=== PATIENT | male | born 1985 | race Caucasian/White ===

== ENCOUNTER 2016-08-15 11:22 | Emergency (ER) | payer OTHER ==
--- NOTE | 2016-08-15 12:21 | REP ---
Left forearm series: Two views. History: Trauma. Findings: Two views of the left forearm demonstrate normal bones, joints, and soft tissues. No fracture or subluxation is seen. Impression: Negative left forearm series. Signed by Kostas Correa MD 08/15/2016 12:33 P
== END 2016-08-15 14:15 | disposition left against medical advice (07) ==
LOC: M ED 11:22
DX: S69.92XA Unspecified injury of left wrist, hand and finger(s), initial encounter (principal); W19.XXXA Unspecified fall, initial encounter; Y92.89 Other specified places as the place of occurrence of the external cause; Y93.89 Activity, other specified; Y99.8 Other external cause status; F19.10 Other psychoactive substance abuse, uncomplicated; F17.210 Nicotine dependence, cigarettes, uncomplicated; Z79.899 Other long term (current) drug therapy; Z53.21 Procedure and treatment not carried out due to patient leaving prior to being seen by health care provider

== ENCOUNTER → 2016-09-22 | Outpatient (CLI) | payer OTHER | LOC: M OUTALCOH 08:21 | PROVIDERS: ATTEND Psychiatry & Neurology Psychiatry | DX: F11.20 Opioid dependence, uncomplicated (principal) ==

== ENCOUNTER → 2016-10-13 | Outpatient (RCR) | payer OTHER | LOC: M OUTALCOH 10-06 11:26 | PROVIDERS: ATTEND Psychiatry & Neurology Psychiatry | DX: F11.20 Opioid dependence, uncomplicated (principal); F17.200 Nicotine dependence, unspecified, uncomplicated ==

== ENCOUNTER 2016-11-10 15:00 | Outpatient (RCR) | payer OTHER | END 2016-11-12 | LOC: M OUTALCOH 15:00 | PROVIDERS: ATTEND Psychiatry & Neurology Psychiatry | DX: F11.20 Opioid dependence, uncomplicated (principal); F17.200 Nicotine dependence, unspecified, uncomplicated ==

== ENCOUNTER 2016-11-19 22:11 | Emergency (ER) | payer OTHER ==
[~2016-11-19] VITALS: Ht 180.3 cm; Wt 108.9 kg
[2016-11-19] MEDS ORDERED: SUBO12MI SL (22:17)
[2016-11-19] MEDS ORDERED: NORCO, ANEXSIA 5/325MG TABLET (HYDROcodone/ACETAMINOPHEN) PO ONE (23:00)
--- NOTE | 2016-11-19 23:40 | REPUSA ---
CT of the head Clinical history: Fall. Comparison: 03/06/2016. Technique: Multiple axial CT images were obtained through the head without administration of contrast . Findings: The ventricles and sulci are symmetric bilaterally. There is no evidence of acute hemorrhag e or infarct. There is no midline shift, mass effect, or extra-axial fluid collection. The osseous st ructures are unremarkable. There is moderate fluid in mucosal thickening in the left ethmoid sinuses. The other visualized paranasal sinuses and mastoid air cells are clear. Impression: 1. No acute intracranial hemorrhage or infarct. 2. Left ethmoid sinusitis.
[2016-11-19] MEDS ORDERED: ACETAMINOPHEN TAB 650MG DOSE (2X325MG) PO ONE (23:45)
[2016-11-20 00:36] LABS: MEAN CORPUSCULAR HEMOGLOBIN 29.1 pg (27.0-33.0); MEAN CORPUSCULAR HGB CONC 32.9 g/dl (32.0-36.5); MEAN CORPUSCULAR VOLUME 88.4 fl (80.0-96.0); RED CELL DISTRIBUTION WIDTH 13.4 % (11.5-14.5); WHITE BLOOD COUNT 10.9 K/mm3 (4.0-10.0)
[2016-11-20] MEDS ORDERED: NAPR500T2 PO (00:36)
[2016-11-20 00:46] VITALS: BP 116/57
[2016-11-20 00:57] LABS: ANION GAP 5 MEQ/L (8-16); BLOOD UREA NITROGEN 14 MG/DL (7-18); CALCIUM LEVEL 8.7 MG/DL (8.5-10.1); CARBON DIOXIDE LEVEL 30 MEQ/L (21-32); CHLORIDE LEVEL 106 MEQ/L (98-107); CREATININE FOR GFR 0.83 MG/DL (0.70-1.30); GLOMERULAR FILTRATION RATE > 60.0 (>60); GLUCOSE, FASTING 87 MG/DL (70-105); POTASSIUM SERUM 4.3 MEQ/L (3.5-5.1); SODIUM LEVEL 141 MEQ/L (136-145)
--- NOTE | 2016-11-20 03:09 | REP ---
Clinical: Trauma. Technique: AP, lateral, bilateral oblique and sunrise views left knee . Findings: The osseous structures and joint spaces are intact and normal. There is no evidence for acute fracture or dislocation. No joint effusion is appreciated. Surrounding soft tissues are unremarkable. No subcutaneous emphysema or radiodense foreign body. Impression: Normal examination. No acute fracture or dislocation. Signed by Brian Hogan MD 11/20/2016 03:00 A
--- NOTE | 2016-11-20 03:10 | REP ---
Clinical: Trauma with thoracic pain. Technique: AP, lateral, and swimmers views. Findings: Alignment and kyphosis is maintained. Vertebral bodies intact. No acute fracture / compression injury or subluxation. No degenerative changes. Paravertebral soft tissues are normal. Impression: Normal thoracic spine series. Signed by Brian Hogan MD 11/20/2016 03:02 A
--- NOTE | 2016-11-20 03:11 | REP ---
Clinical: Trauma. Fall. Technique: Neutral and frog lateral views of the left hip. Findings: No acute fracture or dislocation. Skeletal structures, joint spaces, and surrounding soft tissues are normal. No subcutaneous emphysema or radiodense foreign body. Impression: Normal left hip radiographs. Signed by Brian Hogan MD 11/20/2016 03:03 A
--- NOTE | 2016-11-20 03:13 | REP ---
Clinical: Trauma. Fall. Technique: AP, lateral, bilateral oblique and coned-down views of the lumbosacral spine. Findings: Alignment is maintained. No acute fracture / compression injury or subluxation. Mild to moderate multilevel degenerative changes include endplate sclerosis with minimal disc space narrowing and early anterior osteophyte formation. Impression: Mild multilevel degenerative changes. No acute fracture / compression injury or subluxation. Signed by Brian Hogan MD 11/20/2016 03:05 A
--- NOTE | 2016-11-20 03:15 | REP ---
Clinical: Trauma. Fall. Technique: AP, lateral, flexion/extension, bilateral oblique, and open-mouth views. Findings: Alignment and lordosis is maintained. There is no evidence for acute fracture / compression injury or subluxation. No significant degenerative changes are appreciated. Oblique views demonstrate patent neural foramen. Open mouth view demonstrates normal C1-C2 articulation and odontoid process. Impression: Normal cervical spine series. Signed by Brian Hogan MD 11/20/2016 03:07 A
== END 2016-11-20 00:50 | disposition home or self-care (01) ==
LOC: M ED 23:33
DX: S80.02XA Contusion of left knee, initial encounter (principal); S20.229A Contusion of unspecified back wall of thorax, initial encounter; W01.198A Fall on same level from slipping, tripping and stumbling with subsequent striking against other object, initial encounter; Y92.009 Unspecified place in unspecified non-institutional (private) residence as the place of occurrence of the external cause; Y93.01 Activity, walking, marching and hiking; Y99.8 Other external cause status; Z87.891 Personal history of nicotine dependence

== ENCOUNTER 2016-12-06 10:30 | Outpatient (RCR) | payer MEDICAID ==
[~2016-12-06 10:30] MED LIST: NAPR500T2 PO; SUBO12MI SL
== END 2016-12-13 ==
LOC: M OUTALCOH 10:30
PROVIDERS: ATTEND Psychiatry & Neurology Psychiatry
DX: F11.20 Opioid dependence, uncomplicated (principal); F17.200 Nicotine dependence, unspecified, uncomplicated

== ENCOUNTER → 2016-12-25 | Outpatient (REF) | payer MEDICAID, OTHER ==
[2016-12-25 12:05] LABS: CALCIUM OXALATE CRYSTALS MODERATE
== END ==
LOC: M LABDRAW1 09:54
PROVIDERS: ATTEND Family Medicine
DX: N50.89 Other specified disorders of the male genital organs (principal); Z11.3 Encounter for screening for infections with a predominantly sexual mode of transmission

== ENCOUNTER 2017-01-10 10:00 | Outpatient (RCR) | payer MEDICAID ==
[~2017-01-10 10:00] MED LIST changes: -NAPR500T2 PO; +NAPR500T3 PO
== END 2017-01-12 ==
LOC: M OUTALCOH 10:00
PROVIDERS: ATTEND Psychiatry & Neurology Psychiatry
DX: F11.20 Opioid dependence, uncomplicated (principal); F17.200 Nicotine dependence, unspecified, uncomplicated

== ENCOUNTER 2017-02-09 08:30 | Outpatient (RCR) | payer MEDICAID | END 2017-02-12 | LOC: M OUTALCOH 08:30 | PROVIDERS: ATTEND Psychiatry & Neurology Psychiatry | DX: F11.20 Opioid dependence, uncomplicated (principal); F17.200 Nicotine dependence, unspecified, uncomplicated ==

== ENCOUNTER 2017-02-22 13:38 | Outpatient (RCR) | payer MEDICAID | END 2017-03-15 | LOC: M OUTALCOH 13:38 | PROVIDERS: ATTEND Psychiatry & Neurology Psychiatry | DX: F11.20 Opioid dependence, uncomplicated (principal); F17.200 Nicotine dependence, unspecified, uncomplicated ==

== ENCOUNTER 2017-08-07 17:42 | Emergency (ER) | payer OTHER, MEDICAID ==
[2017-08-07] MEDS: KETOROLAC 60 MG/2 ML VIAL (J1885) IM (19:17)
== END 2017-08-07 20:12 | disposition home or self-care (01) ==
LOC: M ED 17:42
DX: S40.011A Contusion of right shoulder, initial encounter (principal); W22.01XA Walked into wall, initial encounter; F17.210 Nicotine dependence, cigarettes, uncomplicated; Y92.89 Other specified places as the place of occurrence of the external cause; Z88.5 Allergy status to narcotic agent; Z79.899 Other long term (current) drug therapy
CPT/HCPCS: J1885

== ENCOUNTER 2017-11-01 14:56 | Outpatient (RCR) | payer MEDICAID | END 2017-11-12 | LOC: M OUTALCOH 11-07 14:00 | DX: F11.10 Opioid abuse, uncomplicated (principal); F17.200 Nicotine dependence, unspecified, uncomplicated ==

== ENCOUNTER 2017-11-19 13:28 | Outpatient (RCR) | payer MEDICAID | END 2017-12-13 | LOC: M OUTALCOH 12-05 09:00 | DX: F11.20 Opioid dependence, uncomplicated (principal); F17.200 Nicotine dependence, unspecified, uncomplicated ==

== ENCOUNTER 2017-12-20 15:41 | Outpatient (RCR) | payer MEDICAID | END 2018-01-12 | LOC: M OUTALCOH 15:41 | DX: F11.20 Opioid dependence, uncomplicated (principal); F17.200 Nicotine dependence, unspecified, uncomplicated ==

== ENCOUNTER → 2017-12-21 | Outpatient (REF) | payer MEDICAID ==
[2017-12-21 11:04] LABS: HEMATOCRIT 43.9 % (42.0-52.0); HEMOGLOBIN 14.9 g/dl (13.5-17.5); MEAN CORPUSCULAR HEMOGLOBIN 28.8 pg (27.0-33.0); MEAN CORPUSCULAR HGB CONC 33.9 g/dl (32.0-36.5); MEAN CORPUSCULAR VOLUME 84.7 fl (80.0-96.0); PLATELET COUNT, AUTOMATED 188 10^3/uL (150-450); RED BLOOD COUNT 5.18 10^6/uL (4.30-6.10); RED CELL DISTRIBUTION WIDTH 13.5 % (11.5-14.5); WHITE BLOOD COUNT 10.2 10^3/uL (4.0-10.0)
[2017-12-21 11:17] LABS: ALBUMIN 3.8 GM/DL (3.2-5.2); ALBUMIN/GLOBULIN RATIO 1.27 (1.00-1.93); ALKALINE PHOSPHATASE 45 U/L (45-117); ALT/SGPT 122 U/L (12-78); ANION GAP 3 MEQ/L (8-16); AST/SGOT 62 U/L (7-37); BILIRUBIN,TOTAL 0.4 MG/DL (0.2-1.0); BLOOD UREA NITROGEN 13 MG/DL (7-18); CALCIUM LEVEL 8.5 MG/DL (8.5-10.1); CARBON DIOXIDE LEVEL 31 MEQ/L (21-32); CHLORIDE LEVEL 105 MEQ/L (98-107); CREATININE FOR GFR 0.96 MG/DL (0.70-1.30); GLOMERULAR FILTRATION RATE > 60.0 (>60); GLUCOSE, FASTING 109 MG/DL (70-100); POTASSIUM SERUM 4.2 MEQ/L (3.5-5.1); SODIUM LEVEL 139 MEQ/L (136-145); TOTAL PROTEIN 6.8 GM/DL (6.4-8.2)
[2017-12-21 11:39] LABS: ESTIMATED AVERAGE GLUCOSE 108 MG/DL (60-110); HEMOGLOBIN A1c 5.4 %
== END ==
LOC: M LABDRAW1 08:37
DX: E66.9 Obesity, unspecified (principal); Z83.3 Family history of diabetes mellitus

== ENCOUNTER 2018-01-15 13:33 | Outpatient (RCR) | payer MEDICAID | END 2018-02-12 | LOC: M OUTALCOH 01-18 12:48 | DX: F11.20 Opioid dependence, uncomplicated (principal); F17.200 Nicotine dependence, unspecified, uncomplicated ==

== ENCOUNTER 2018-03-21 15:26 | Outpatient (RCR) | payer MEDICAID | END 2018-04-14 | LOC: M OUTALCOH 03-25 16:00 | DX: F11.20 Opioid dependence, uncomplicated (principal); F17.200 Nicotine dependence, unspecified, uncomplicated ==

== ENCOUNTER 2018-04-18 13:00 | Outpatient (RCR) | payer MEDICAID | END 2018-05-15 | LOC: M OUTALCOH 04-22 16:00 | DX: F11.20 Opioid dependence, uncomplicated (principal); F17.200 Nicotine dependence, unspecified, uncomplicated ==

== ENCOUNTER 2018-05-20 14:29 | Outpatient (RCR) | payer MEDICAID | END 2018-06-14 | LOC: M OUTALCOH 05-23 14:00 | DX: F11.20 Opioid dependence, uncomplicated (principal); F17.200 Nicotine dependence, unspecified, uncomplicated ==

== ENCOUNTER 2018-07-11 13:56 | Outpatient (RCR) | payer MEDICAID ==
[~2018-07-11 13:56] MED LIST changes: +KETO10TAB PO; +NAPR-885 PO; -NAPR500T3 PO
== END 2018-07-15 ==
LOC: M OUTALCOH 13:56
PROVIDERS: ATTEND Psychiatry & Neurology Psychiatry
DX: F41.9 Anxiety disorder, unspecified (principal); F11.188 Opioid abuse with other opioid-induced disorder; F32.9 Major depressive disorder, single episode, unspecified

== ENCOUNTER 2018-07-19 15:41 | Outpatient (RCR) | payer MEDICAID | END 2018-08-15 | LOC: M OUTALCOH 15:41 | PROVIDERS: ATTEND Psychiatry & Neurology Psychiatry | DX: F11.10 Opioid abuse, uncomplicated (principal); F11.20 Opioid dependence, uncomplicated; F17.200 Nicotine dependence, unspecified, uncomplicated ==

== ENCOUNTER 2018-09-09 21:38 | Emergency (ER) | payer MEDICAID, OTHER ==
[~2018-09-09] VITALS: Ht 180.3 cm; Wt 127.3 kg
[2018-09-09] MEDS ORDERED: NS 1,000 ML IV ONE (22:00)
[2018-09-09 22:24] LABS: HEMATOCRIT 47.1 % (42.0-52.0); HEMOGLOBIN 15.9 g/dl (13.5-17.5); MEAN CORPUSCULAR HEMOGLOBIN 28.7 pg (27.0-33.0); MEAN CORPUSCULAR HGB CONC 33.8 g/dl (32.0-36.5); PLATELET COUNT, AUTOMATED 221 10^3/uL (150-450); RED BLOOD COUNT 5.54 10^6/uL (4.30-6.10); WHITE BLOOD COUNT 10.1 10^3/uL (4.0-10.0)
--- NOTE | 2018-09-09 22:40 | REPVR ---
EXAM: CT Head Without Contrast EXAM DATE/TIME: 09/09/2018 10:17 PM CLINICAL HISTORY: 33 years old, male; Pain; Headache; Additional info: Right headache, no trauma TECHNIQUE: Axial computed tomography images of the head/brain without contrast. All CT scans at this facility use at least one of these dose optimization techniques: automated exposure control; mA and/or kV adjustment per patient size (includes targeted exams where dose is matched to clinical indication); or iterative reconstruction. COMPARISON: CT Head without contrast 11/19/2016 11:19 PM FINDINGS: Brain: There is no evidence of intracranial bleed. Ventricles: Normal ventricles. Bones/joints: There is no evidence of fracture. Sinuses: Clear paranasal sinuses. Mastoid air cells: Clear mastoid air cells. Soft tissues: Unremarkable. IMPRESSION: Normal appearing CT scan of the brain. Electronically signed by: Kishor St On 09/09/2018 22:39:59 PM
[2018-09-09 22:42] LABS: BLOOD UREA NITROGEN 11 MG/DL (7-18); CALCIUM LEVEL 8.8 MG/DL (8.5-10.1); CARBON DIOXIDE LEVEL 30 MEQ/L (21-32); CHLORIDE LEVEL 101 MEQ/L (98-107); CREATININE FOR GFR 1.09 MG/DL (0.70-1.30); GLOMERULAR FILTRATION RATE > 60.0 (>60); GLUCOSE, FASTING 92 MG/DL (70-100); POTASSIUM SERUM 4.7 MEQ/L (3.5-5.1); SODIUM LEVEL 138 MEQ/L (136-145)
[2018-09-09 22:45] LABS: ERYTHROCYTE SEDIMENTATION RATE 2 mm/hr (0-15)
[2018-09-09] MEDS ORDERED: KETOROLAC 30 MG/ML VIAL (J1885) IV ONE (22:45)
[2018-09-09] MEDS ORDERED: IBUP-1114 PO (23:03)
[2018-09-09] MEDS ORDERED: REGL5TAB2 PO (23:28)
[2018-09-09 23:36] VITALS: BP 128/59
== END 2018-09-09 23:37 | disposition home or self-care (01) ==
LOC: M ED 21:38
DX: R51 Headache (principal); F17.200 Nicotine dependence, unspecified, uncomplicated; Z79.899 Other long term (current) drug therapy
CPT/HCPCS: 70450; 80048; 85027; 85652; 96374; 99284; J1885

== ENCOUNTER 2018-11-17 12:34 | Emergency (ER) | payer OTHER ==
[~2018-11-17] VITALS: Ht 180.3 cm; Wt 135.7 kg
[~2018-11-17 12:34] MED LIST changes: +IBUP-1114 PO; +REGL5TAB2 PO
[2018-11-17] MEDS ORDERED: CLOB05OI TOP (14:56)
[2018-11-17] MEDS ORDERED: MUPI30CR TOP (14:56)
--- NOTE | 2018-11-17 15:00 | REP ---
LEFT FOOT, FOUR VIEWS: There is no evidence of an acute fracture, dislocation or intrinsic bone disease. There is a tiny inferior calcaneal spur. IMPRESSION: No fracture or dislocation. Electronically Signed by Kyle Reveles MD 11/17/2018 03:02 P
[2018-11-17 15:04] VITALS: BP 133/63
== END 2018-11-17 15:05 | disposition home or self-care (01) ==
LOC: M ED 12:34
DX: L03.116 Cellulitis of left lower limb (principal); Z79.891 Long term (current) use of opiate analgesic; Z88.5 Allergy status to narcotic agent; F17.210 Nicotine dependence, cigarettes, uncomplicated

== ENCOUNTER → 2019-01-07 | Outpatient (REF) | payer OTHER, MEDICAID ==
[~2019-01-07] MED LIST changes: +CLOB05OI TOP; +MUPI30CR TOP
[2019-01-07 13:41] LABS: BASO # 0.1 10^3/uL (0.0-0.2); BASO % 0.6 % (0.0-1.0); EOS # 0.2 10^3/uL (0.0-0.50); EOS % 1.5 % (0.0-3.0); HEMATOCRIT 51.3 % (42.0-52.0); HEMOGLOBIN 16.8 g/dl (13.5-17.5); LYMPH # 3.6 10^3/uL (1.5-4.5); LYMPH % 25.2 % (24.0-44.0); MEAN CORPUSCULAR HEMOGLOBIN 28.9 pg (27.0-33.0); MEAN CORPUSCULAR HGB CONC 32.7 g/dl (32.0-36.5); MEAN CORPUSCULAR VOLUME 88.1 fl (80.0-96.0); MONO % 6.7 % (0.0-5.0); NEUTROPHILS # 9.5 10^3/uL (1.8-7.7); NEUTROPHILS % 65.6 % (36.0-66.0); PLATELET COUNT, AUTOMATED 205 10^3/uL (150-450); RED BLOOD COUNT 5.82 10^6/uL (4.30-6.10); WHITE BLOOD COUNT 14.4 10^3/uL (4.0-10.0)
[2019-01-07 14:02] LABS: APPEARANCE, URINE HAZY (CLEAR); BACTERIA, URINE AUTO NEGATIVE (NEGATIVE); BILIRUBIN, URINE AUTO NEGATIVE (NEGATIVE); BLOOD, URINE BLOOD NEGATIVE (NEGATIVE); COLOR, URINE YELLOW (YELLOW); GLUCOSE, URINE (UA) AUTO NEGATIVE (NEGATIVE); KETONE, URINE AUTO TRACE mg/dL (NEGATIVE); LEUKOCYTE ESTERASE, URINE AUTO NEGATIVE (NEGATIVE); MUCUS, URINE LARGE (NEGATIVE); NITRITE, URINE AUTO NEGATIVE (NEGATIVE); PROTEIN, URINE AUTO NEGATIVE (NEGATIVE); RBC, URINE AUTO 1 /HPF (0-3); SPECIFIC GRAVITY URINE AUTO 1.031 (1.002-1.035); SQUAMOUS EPITHELIAL CELL UR AU 0 /HPF (0-6); WBC, URINE AUTO 1 /HPF (0-3)
[2019-01-07 14:08] LABS: ALBUMIN 3.8 GM/DL (3.2-5.2); ALT/SGPT 84 U/L (12-78); BILIRUBIN,TOTAL 0.2 MG/DL (0.2-1.0); BLOOD UREA NITROGEN 13 MG/DL (7-18); CALCIUM LEVEL 9.1 MG/DL (8.5-10.1); CARBON DIOXIDE LEVEL 30 MEQ/L (21-32); CHLORIDE LEVEL 105 MEQ/L (98-107); CHOLESTEROL LEVEL 149 MG/DL (<200); CHOLESTEROL RISK RATIO 3.239 (<5); CREATININE FOR GFR 1.14 MG/DL (0.70-1.30); FREE T4 1.15 NG/DL (0.76-1.46); GLOMERULAR FILTRATION RATE > 60.0 (>60); GLUCOSE, FASTING 89 MG/DL (70-100); HDL CHOLESTEROL 46 MG/DL (>40); LDL CHOLESTEROL 83 MG/DL (<100); NON-HDL-C 103 MG/DL; POTASSIUM SERUM 4.7 MEQ/L (3.5-5.1); SODIUM LEVEL 140 MEQ/L (136-145); TOTAL 25(OH) VITAMIN D 17.9 NG/ML (30.0-100.0); TOTAL PROTEIN 7.2 GM/DL (6.4-8.2); TRIGLYCERIDES LEVEL 99 MG/DL (<150)
[2019-01-07 14:40] LABS: HEMOGLOBIN A1c 5.7 %
[2019-01-09 00:06] LABS: Lyme Disease IgG/IgM Antibodie <0.91 ISR (0.00-0.90); Lyme Disease IgM Ab Quantitati <0.80 index (0.00-0.79)
== END ==
LOC: M LAB REF 12:57
PROVIDERS: ATTEND Family Medicine
DX: Z13.228 Encounter for screening for other metabolic disorders (principal)

== ENCOUNTER 2019-01-20 09:53 | Emergency (ER) | payer MEDICAID, OTHER ==
[~2019-01-20] VITALS: Ht 180.3 cm; Wt 130.3 kg
[2019-01-20] MEDS ORDERED: KEFL500C17 PO (12:35)
[2019-01-20 12:43] VITALS: BP 121/70
== END 2019-01-20 12:44 | disposition home or self-care (01) ==
LOC: M ED 10:54
DX: L03.116 Cellulitis of left lower limb (principal); F17.210 Nicotine dependence, cigarettes, uncomplicated; F19.10 Other psychoactive substance abuse, uncomplicated; Z79.891 Long term (current) use of opiate analgesic; Z88.5 Allergy status to narcotic agent

== ENCOUNTER → 2020-07-31 | Outpatient (CLI) | payer SELFPAY ==
[~2020-07-31] MED LIST changes: +KEFL500C17 PO
== END ==
LOC: M LABSMTC 08:24
PROVIDERS: ATTEND Pediatrics
DX: Z20.822 Contact with and (suspected) exposure to COVID-19 (principal)

== ENCOUNTER → 2020-09-06 | Outpatient (REF) | payer OTHER ==
[2020-09-06 13:03] LABS: HEMATOCRIT 46.9 % (42.0-52.0); HEMOGLOBIN 15.3 g/dl (13.5-17.5); MEAN CORPUSCULAR HGB CONC 32.6 g/dl (32.0-36.5); PLATELET COUNT, AUTOMATED 212 10^3/uL (150-450); RED BLOOD COUNT 5.27 10^6/uL (4.30-6.10); WHITE BLOOD COUNT 9.8 10^3/uL (4.0-10.0)
[2020-09-06 13:33] LABS: HEMOGLOBIN A1c 5.2 %
[2020-09-06 13:52] LABS: ALBUMIN 4.2 GM/DL (3.2-5.2); ALT/SGPT 89 U/L (12-78); BILIRUBIN,TOTAL 0.3 MG/DL (0.2-1.0); BLOOD UREA NITROGEN 14 MG/DL (7-18); CALCIUM LEVEL 9.3 MG/DL (8.5-10.1); CARBON DIOXIDE LEVEL 29 MEQ/L (21-32); CHLORIDE LEVEL 104 MEQ/L (98-107); CHOLESTEROL LEVEL 152 MG/DL (<200); CHOLESTEROL RISK RATIO 3.377 (<5); CREATININE FOR GFR 0.96 MG/DL (0.70-1.30); GLOMERULAR FILTRATION RATE > 60.0 (>60); GLUCOSE, FASTING 91 MG/DL (70-100); HDL CHOLESTEROL 45 MG/DL (>40); LDL CHOLESTEROL 85 MG/DL (<100); NON-HDL-C 107 MG/DL; POTASSIUM SERUM 4.8 MEQ/L (3.5-5.1); SODIUM LEVEL 139 MEQ/L (136-145); TOTAL PROTEIN 7.2 GM/DL (6.4-8.2); TRIGLYCERIDES LEVEL 111 MG/DL (<150)
== END ==
LOC: M LAB REF 12:42
PROVIDERS: ATTEND Physician Assistant
DX: R03.0 Elevated blood-pressure reading, without diagnosis of hypertension (principal); Z13.228 Encounter for screening for other metabolic disorders